=== PATIENT | female | born 1980 | race Caucasian/White ===

== ENCOUNTER → 2023-05-18 14:42 | Outpatient (CLI) | payer OTHER, SELFPAY ==
[2023-05-18 14:13] LABS: Free T4 (Free Thyroxine) 1.17 ng/dl (0.78-2.19)
== END ==
PROVIDERS: PCP Nurse Practitioner Family; Visit Provider Nurse Practitioner Family
DX: E03.9 Hypothyroidism, unspecified (principal)
CPT/HCPCS: 84439; 84443